=== PATIENT | female | born 1940 | race Caucasian/White ===

== ENCOUNTER → 2018-03-22 16:53 | Outpatient (CLI) | payer MEDICARE, OTHER, SELFPAY ==
--- NOTE | 2018-03-22 17:04 | DI.MRI.S_ITS ---
PROCEDURE: MR THORACIC SPINE WO CON INDICATIONS: MID AND LOW BACK PAIN TECHNIQUE: Noncontrast sagittal T1 spine echo and T2 fast spin echo, sagittal STIR, axial T1 and T2 fast spin echo through the thoracic spine. COMPARISON: [facility], , T-SPINE WITHOUT CONTRAST, 11/17/2014, 14:34. FINDINGS: Image quality: Excellent. Alignment and Curvature: There is normal bony alignment. Bone Marrow: Marrow is of stable overall signal with a small anterior T2 level vertebral body hemangioma located inferiorly. No acute vertebral body compression fractures. Spinal Cord: Visualized spinal cord is normal in size and signal. Paraspinous Soft Tissues: No paravertebral masses. Miscellaneous: On axial images, central canal and foramina appear widely patent at all scanned levels. IMPRESSION: Mild degenerative disc disease previously present has not worsened. Stable appearance of a small subcentimeter T2 vertebral body marrow space hemangioma previously seen in November 2014. Source of new mid and low back pain is not found. Dictated by: Keith Centeno M.D. on 03/23/2018 at 9:44 Approved by: Keith Centeno M.D. on 03/23/2018 at 9:47
== END ==
PROVIDERS: Family Provider Family Medicine; PCP Family Medicine; Visit Provider Physical Medicine & Rehabilitation Pain Medicine
DX: M51.34 Other intervertebral disc degeneration, thoracic region (principal)
CPT/HCPCS: 72146

== ENCOUNTER → 2019-03-25 09:31 | Outpatient (CLI) | payer MEDICARE, OTHER, SELFPAY ==
--- NOTE | 2019-03-25 | DI.MRI.S_ITS ---
PROCEDURE: MR LUMBAR SPINE WO CON INDICATIONS: Spinal stenosis, lumbar region TECHNIQUE: Noncontrast sagittal T1 spin echo and T2 fast echo, sagittal STIR, axial T1 and T2 fast spin echo through the lumbar spine. In cases with scoliosis, additional coronal T2 fast spin echo may be performed. COMPARISON: [facility], MR, L-SPINE WITHOUT CONTRAST, 09/02/2017, 12:35. FINDINGS: Image quality: Excellent. Alignment and Curvature: There is normal bony alignment. Bone Marrow: Marrow is of normal overall signal. No acute vertebral body compression fractures. Spinal Cord: Conus medullaris terminates at the L1 level. Visualized cord demonstrates normal signal and size. Paraspinous Soft Tissues: No paravertebral masses. L1-L2: Decreased intervertebral disc space and degenerative endplate changes are seen. Mild diffuse disc bulge and bilateral facet arthrosis is noted. There is mild left-sided neuroforaminal narrowing. No significant central canal stenosis. L2-L3: There is decreased intervertebral disc space and disc desiccation. Diffuse disc bulge and bilateral facet arthrosis is seen with mild central canal stenosis and left worse than right bilateral neuroforaminal narrowing. There is mild compression of left exiting L2 nerve root. L3-L4: Decreased intervertebral disc space and disc desiccation is seen. Broad-based disc bulge and bilateral facet arthrosis is noted with hypertrophy of ligamentum flavum. Mild to moderate central canal stenosis and bilateral neuroforaminal narrowing is seen. There is mild compression of bilateral exiting L3 nerve roots. L4-L5: Disc desiccation is seen. Diffuse disc bulge and bilateral facet arthrosis with hypertrophy of ligamentum flavum is noted. There is moderate central canal stenosis right worse than left bilateral neuroforaminal narrowing. There is compression of bilateral exiting L4 nerve roots. L5-S1: Disc desiccation signal is seen. Mild diffuse disc bulge and bilateral facet arthrosis is noted. No significant central canal stenosis or neuroforaminal narrowing. IMPRESSION: 1. No marrow edema. No compression fracture or spondylolisthesis. 2. Degenerative disc bulge and bilateral facet arthrosis lumbar spine causing mild to moderate central canal stenosis and bilateral neuroforaminal narrowing most prominent at L4-5 level as described above, progressed since 2017 study. Dictated by: Joey Aguilar M.D. on 03/25/2019 at 11:24 Approved by: Joey Aguilar M.D. on 03/25/2019 at 11:40
== END ==
PROVIDERS: Family Provider Family Medicine; PCP Family Medicine; Visit Provider Physical Medicine & Rehabilitation Pain Medicine
DX: M48.061 Spinal stenosis, lumbar region without neurogenic claudication (principal); M47.816 Spondylosis without myelopathy or radiculopathy, lumbar region; M51.36 Other intervertebral disc degeneration, lumbar region
CPT/HCPCS: 72148